=== PATIENT | female | born 1990 | race Caucasian/White ===

== ENCOUNTER → 2017-05-10 | Outpatient (CLI) | payer OTHER ==
[~2017-05-10] MED LIST: AC500T PO; DCS100C PO; IBP600T1 PO; PREN1TAB64 PO
--- NOTE | 2017-05-10 13:53 | Diagnostic Imaging Report ---
PROCEDURE: CT head without contrast. TECHNIQUE: Multiple contiguous axial images were obtained through the brain without the use of intravenous contrast. INDICATION: Right eye vision loss. FINDINGS: There is no intracranial hemorrhage, edema, or mass effect. The brain parenchyma and costello-white matter differentiation is preserved. No hydrocephalus. No extra-axial fluid collection is seen. The visualized portions of the orbits and paranasal sinuses appear unremarkable. IMPRESSION: Unremarkable exam. Dictated by: Dictated on workstation # [id number]
== END ==
LOC: RAD 08:14
PROVIDERS: ATTEND Family Medicine
DX: R51 Headache (principal); H54.61 Unqualified visual loss, right eye, normal vision left eye
CPT/HCPCS: 70450